=== PATIENT | male | born 1945 | race Caucasian/White ===

== ENCOUNTER 2017-09-11 22:46 | Inpatient (IN) | payer OTHER ==
[~2017-09-11] VITALS: Ht 177.8 cm; Wt 68.6 kg
--- NOTE | ~2017-09-11 | EKG ---
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 NIX : 1945 Requested By: Mirian Conrad Order Number: [id number] MD: Sam Mello Measurements Intervals [place] Rate: 55 P: -69 [place]: 338 QRS: 79 QRSD: 164 T: 27 QT: 505 QTc: 483 Interpretive Statements Sinus or ectopic atrial rhythm Prolonged [place] interval Right bundle branch block Anteroseptal infarct, age indeterminate No previous ECG available for comparison Electronically Signed On 09-12-2017 10:14:53 CDT by Sam Mello [email or web address] <ELECTRONICALLY SIGNED> By: Sam Mello MD 09/12/17 1014 [id number] 18 Sam Mello MD /[email or web address]
[2017-09-11 22:47] VITALS: BP 148/80
[2017-09-11 23:04] LABS: HEMATOCRIT 40.6 % (42.0-52.0); HEMOGLOBIN 13.9 gm/dL (14.0-18.0); MCH 32.6 pg (26.0-34.0); MCHC 34.3 g/dL (28.0-37.0); MCV 95.1 fL (80.0-100.0); PLATELET COUNT 265 thou/uL (150-400); RBC 4.27 mil/uL (4.50-6.00); RDW 13.3 % (10.5-14.5)
[2017-09-11] MEDS ORDERED: CREON DR 36,001 EACH PO (23:09)
[2017-09-11] MEDS ORDERED: FOLIC ACID1 MG PO (23:10)
[2017-09-11 23:12] LABS: ANION GAP 5 mmol/L (7-16); BUN 11 mg/dL (7-18); CALCIUM 8.9 mg/dL (8.5-10.1); CHLORIDE 101 mmol/L (98-107); CO2 27 mmol/L (21-32); CREATININE 1.1 mg/dL (0.7-1.3); GLUCOSE 95 mg/dL (74-106); POTASSIUM 3.8 mmol/L (3.5-5.1); SALICYLATE < 2.8 mg/dL (2.8-20.0); SODIUM 133 mmol/L (136-145)
[2017-09-11] MEDS ORDERED: ALTACE10 MG PO (23:12)
[2017-09-11] MEDS ORDERED: MYSOLINE50 MG PO ×2 (23:13)
[2017-09-11] MEDS ORDERED: LEXAPRO20 MG PO (23:15)
[2017-09-11] MEDS ORDERED: FENOFIBRATE145 M1 PO (23:15)
[2017-09-11] MEDS ORDERED: COUMADIN7.5 MG PO (23:16)
[2017-09-11] MEDS ORDERED: PROTONIX40 M1 PO (23:16)
[2017-09-11] MEDS ORDERED: COREG6.25 MG PO (23:16)
[2017-09-11] MEDS ORDERED: REMERON15 MG PO (23:17)
[2017-09-11] MEDS ORDERED: CLONAZEPAM 0.50.5 M1 PO (23:17)
[2017-09-11] MEDS ORDERED: AMBIEN 5 MG TABL5 M1 PO (23:19)
[2017-09-11] MEDS ORDERED: XANAX 0.25 MG0.25 MG PO (23:19)
[2017-09-11 23:20] LABS: URINE BILIRUBIN NEGATIVE (Negative); URINE BLOOD TRACE (Negative); URINE CLARITY CLEAR; URINE COLOR YELLOW; URINE GLUCOSE-RANDOM* NEGATIVE (Negative); URINE KETONES NEGATIVE (Negative); URINE LEUKOCYTES-REFLEX NEGATIVE (Negative); URINE NITRITE-REFLEX NEGATIVE (Negative); URINE PROTEIN (DIPSTICK) NEGATIVE (Negative); URINE SPECIFIC GRAVITY <= 1.005 (1.005-1.035); URINE UROBILINOGEN 0.2 E.U./dl (0.2-1.0)
[2017-09-11] MEDS ORDERED: NORCO 7.5-3251 EACH PO (23:20)
[2017-09-11 23:29] LABS: AMP/METHAMP Negative (Negative); BARBITURATES POSITIVE (Negative); BENZODIAZEPINES POSITIVE (Negative); COCAINE Negative (Negative); METHADONE Negative (Negative); OPIATES POSITIVE (Negative); PCP Negative (Negative)
[2017-09-11 23:35] LABS: ABSOLUTE NEUTROPHILS 1.8 thou/uL (1.4-8.2)
[2017-09-11 23:40] LABS: BE(vivo) -0.7 mmol/L (-2 to +3); HCO3 23.9 mmol/L (22.0-26.0); PCO2 39.3 mmHg (35.0-45.0); pH 7.402 (7.360-7.450); sO2 99.9 % (92.0-98.0)
[2017-09-11 23:41] LABS: PO2 548.3 mmHg (80.0-100.0)
[2017-09-12] VITALS (31 sets, daily range): BP systolic 100–166; BP diastolic 39–95
[2017-09-12 03:23] LABS: INR 3.5; PROTIME 35.6 Seconds (9.3-11.4)
[2017-09-12 06:44] LABS: ALBUMIN 3.7 g/dL (3.4-5.0); CALCIUM 8.5 mg/dL (8.5-10.1); CREATININE 0.9 mg/dL (0.7-1.3); MAGNESIUM 1.6 mg/dL (1.8-2.4); POTASSIUM 3.5 mmol/L (3.5-5.1); TOTAL BILIRUBIN 0.6 mg/dL (<0.1-1.0)
[2017-09-12 07:00] LABS: HEMATOCRIT 38.4 % (42.0-52.0); HEMOGLOBIN 13.1 gm/dL (14.0-18.0); MCH 32.5 pg (26.0-34.0); MCHC 34.2 g/dL (28.0-37.0); MCV 95.1 fL (80.0-100.0); RBC 4.04 mil/uL (4.50-6.00); RDW 13.3 % (10.5-14.5); WBC 10.1 thou/uL (4.0-11.0)
[2017-09-12 13:08] LABS: HCO3 22.3 mmol/L (22.0-26.0); PO2 128.1 mmHg (80.0-100.0); pH 7.398 (7.360-7.450); sO2 98.6 % (92.0-98.0)
[2017-09-13] VITALS (17 sets, daily range): BP systolic 130–154; BP diastolic 61–78
[2017-09-14 05:40] VITALS: BP 134/77
[2017-09-15 03:30] VITALS: BP 134/61
[2017-09-15 08:52] VITALS: BP 139/65
[2017-09-15 16:41] VITALS: BP 136/77
== END 2017-09-15 19:18 | DRG 917 ==
LOC: ER 22:46 → EROBS 09-12 00:17 → 4W 09-12 00:17 → ICU 09-12 01:11 → 4W 09-13 17:35
PROVIDERS: Emergency Medicine; Hospitalist; Nurse Practitioner Acute Care
PROC: 5A1935Z Respiratory Ventilation, Less than 24 Consecutive Hours (ICD-10-PCS; principal; 2017-09-12)
PROC: 0BH17EZ Insertion of Endotracheal Airway into Trachea, Via Natural or Artificial Opening (ICD-10-PCS; principal; 2017-09-12)
DX: T42.3X2A Poisoning by barbiturates, intentional self-harm, initial encounter (principal); J96.01 Acute respiratory failure with hypoxia; G92 Toxic encephalopathy; T42.4X2A Poisoning by benzodiazepines, intentional self-harm, initial encounter; T40.602A Poisoning by unspecified narcotics, intentional self-harm, initial encounter; I10 Essential (primary) hypertension; F17.210 Nicotine dependence, cigarettes, uncomplicated; F32.9 Major depressive disorder, single episode, unspecified; G89.29 Other chronic pain; R10.9 Unspecified abdominal pain; I25.10 Atherosclerotic heart disease of native coronary artery without angina pectoris; Z79.01 Long term (current) use of anticoagulants; Z79.899 Other long term (current) drug therapy; Z85.72 Personal history of non-Hodgkin lymphomas; Z95.1 Presence of aortocoronary bypass graft; Z86.19 Personal history of other infectious and parasitic diseases; Y92.098 Other place in other non-institutional residence as the place of occurrence of the external cause
CPT/HCPCS: 10045; 10203